=== PATIENT | female | born 1950 | race Caucasian/White ===

== ENCOUNTER 2016-09-22 11:32 | Outpatient (CLI) | payer MEDICARE ==
[2016-09-22 13:10] LABS: ALT (SGPT) 39 U/L (0-55); AST (SGOT) 32 U/L (5-34); Alkaline Phosphatase 53 U/L (40-150); Anion Gap 13 mmol/L (10-20); BUN (Urea Nitrogen) 10 mg/dL (9.8-20.1); Bilirubin, Total 0.9 mg/dL (0.2-1.2); Calc. Creatinine Clearance 0 mL/min (70-130); Calcium 9.3 mg/dL (7.8-10.44); Carbon Dioxide 24 mmol/L (23-31); Chloride 107 mmol/L (98-107); Estimated GFR-MDRD 81; Globulin 2.8 g/dL (2.4-3.5); LDL Cholesterol, Calculated 117 mg/dL; Protein, Total 6.9 g/dL (5.8-8.1)
[2016-09-22 13:34] LABS: #Basophils 0.1 thou/uL (0.0-0.2); #Eosinphils 0.5 thou/uL (0.0-0.7); #Lymphocytes 1.8 thou/uL (1.20-3.40); #Monocytes 0.4 thou/uL (0.11-0.59); #Neutrophils 3.8 thou/uL (1.40-6.50); %Basophils 1.4 % (0.0-1.0); %Eosinophils 7.4 % (0.0-10.0); %Monocytes 6.5 % (0.0-10.0); Hematocrit 43.3 % (36.0-47.0); Mean Platelet Volume 8.2 fL (7.4-10.4); Red Blood Cell (RBC) Count 4.57 mill/uL (4.20-5.40); White Blood Cell (WBC) Count 6.6 thou/uL (4.8-10.8)
== END 2016-09-22 11:33 | disposition home or self-care (01) ==
LOC: HPCALD 11:32
PROVIDERS: ATTEND Family Medicine
DX: E03.9 Hypothyroidism, unspecified (principal); I10 Essential (primary) hypertension
CPT/HCPCS: 36415; 80053; 80061; 84439; 84443; 85025

== ENCOUNTER 2016-11-03 10:00 | Outpatient (CLI) | payer MEDICARE ==
[2016-11-03 11:14] LABS: ALT (SGPT) 30 U/L (0-55); AST (SGOT) 25 U/L (5-34); Alkaline Phosphatase 50 U/L (40-150); Bilirubin, Direct 0.4 mg/dL (0.1-0.3); Bilirubin, Total 0.8 mg/dL (0.2-1.2); LDL Cholesterol, Calculated 60 mg/dL; Protein, Total 6.5 g/dL (5.8-8.1)
== END 2016-11-03 10:01 ==
LOC: HPCALD 10:00
PROVIDERS: ATTEND Family Medicine
DX: E78.00 Pure hypercholesterolemia, unspecified (principal)
CPT/HCPCS: 36415; 80061; 80076

== ENCOUNTER 2017-03-24 16:33 | Outpatient (CLI) | payer MEDICARE | END 2017-03-24 16:34 | disposition home or self-care (01) | LOC: HPCALD 16:33 | PROVIDERS: ATTEND Family Medicine | DX: E03.9 Hypothyroidism, unspecified (principal) | CPT/HCPCS: 36415; 84443 ==

== ENCOUNTER 2017-05-13 08:07 | Outpatient (CLI) | payer MEDICARE ==
[2017-05-13 08:52] LABS: Anion Gap 12 mmol/L (10-20); BUN (Urea Nitrogen) 17 mg/dL (9.8-20.1); Calc. Creatinine Clearance 0 mL/min (70-130); Calcium 9.6 mg/dL (7.8-10.44); Carbon Dioxide 27 mmol/L (23-31); Chloride 107 mmol/L (98-107); Estimated GFR-MDRD 70; Glucose 111 mg/dL (80-115); Potassium 4.8 mmol/L (3.5-5.1); Sodium 141 mmol/L (136-145)
== END 2017-05-13 08:08 | disposition home or self-care (01) ==
LOC: BURLAB 08:07
PROVIDERS: ATTEND Internal Medicine Cardiovascular Disease
DX: R42 Dizziness and giddiness (principal); R93.1 Abnormal findings on diagnostic imaging of heart and coronary circulation; I10 Essential (primary) hypertension
CPT/HCPCS: 36415; 80048

== ENCOUNTER 2018-01-27 08:45 | Outpatient (CLI) | payer MEDICARE ==
[2018-01-27 09:48] LABS: Prothrombin Time 12.6 SEC (12.0-14.7)
[2018-01-27 09:49] LABS: INR-International Normal Ratio 0.9
--- NOTE | 2018-01-27 17:23 | ULT ---
HEPATIC ULTRASOUND 01/27/18 Ultrasonography of the right upper quadrant was performed. The liver is large, measuring 17.6 cm in oblique sagittal length. It is diffusely echogenic, suggesti ng some degree of fatty infiltration. No hepatic masses or dilated ducts were seen. Portal venous fox w was appropriately towards the liver. There has been a prior cholecystectomy. The pancreas was parti ally obscured by gas, but the visible sections appear normal. The right kidney appears normal and was 10.7 cm long. The common bile duct is a normal 4 mm in caliber. IMPRESSION: Mild hepatic enlargement and presumed fatty infiltration. No acute right upper quadrant findings. POS: HOME
[2018-01-27 17:44] LABS: #Basophils 0.1 thou/uL (0.0-0.2); #Eosinphils 0.3 thou/uL (0.0-0.7); #Monocytes 0.5 thou/uL (0.11-0.59); %Basophils 0.9 % (0.0-1.0); %Eosinophils 4.2 % (0.0-10.0); %Lymphocytes 28.9 % (21.0-51.0); %Monocytes 6.9 % (0.0-10.0); Hemoglobin 12.9 g/dL (12.0-16.0); Mean Corpuscular HGB CONC 32.1 g/dL (32.0-36.0); Mean Corpuscular Hemoglobin 30.3 pg (27.0-31.0); Mean Corpuscular Volume 94.4 fl (81.0-99.0); Mean Platelet Volume 9.1 fL (7.4-10.4); Platelet Count 222 thou/uL (130-400); RBC Distribution Width 12.2 % (11.5-14.5); Red Blood Cell (RBC) Count 4.25 mill/uL (4.20-5.40); White Blood Cell (WBC) Count 6.8 thou/uL (4.8-10.8)
[2018-01-27 17:46] LABS: ALT (SGPT) 37 U/L (8-55); AST (SGOT) 33 U/L (5-34); Albumin 4.4 g/dL (3.4-4.8); Alkaline Phosphatase 63 U/L (40-150); Anion Gap 9 mmol/L (10-20); BUN (Urea Nitrogen) 10 mg/dL (9.8-20.1); Bilirubin, Total 0.7 mg/dL (0.2-1.2); Calc. Creatinine Clearance 0 mL/min (70-130); Calcium 9.9 mg/dL (7.8-10.44); Carbon Dioxide 28 mmol/L (23-31); Chloride 107 mmol/L (98-107); Estimated GFR-MDRD 83; Globulin 2.6 g/dL (2.4-3.5); Glucose 113 mg/dL (80-115); Potassium 4.4 mmol/L (3.5-5.1); Sodium 140 mmol/L (136-145)
[2018-01-27 18:05] LABS: Hep B Core Total Ab Non-Reactive (NonReactive); Hep B Core Total Index 0.07 S/CO (0-0.79); Hep B Surf AB Non-Reactive (NonReactive)
[2018-01-29 08:21] LABS: Hepatitis A IgM ABS Negative (Negative); Hepatitis A Total ABS Negative (Negative)
== END 2018-01-27 08:46 | disposition home or self-care (01) ==
LOC: BURULT 08:45
PROVIDERS: ATTEND Internal Medicine Gastroenterology
DX: K52.9 Noninfective gastroenteritis and colitis, unspecified (principal); K75.81 Nonalcoholic steatohepatitis (NASH); R11.10 Vomiting, unspecified; R16.0 Hepatomegaly, not elsewhere classified
CPT/HCPCS: 36415; 76705; 80053; 82105; 85025; 85610; 86704; 86706; 86709; 87045; 87046; 87081; 87177; 87324; 87449; 87899

== ENCOUNTER 2018-06-28 11:12 | Outpatient (CLI) | payer MEDICARE ==
--- NOTE | 2018-06-28 18:38 | RAD ---
RIGHT SHOULDER THREE VIEWS: 06/28/2018 FINDINGS: No fracture, dislocation, or abnormality of the glenohumeral joint is seen. There is no widening of the AC joint, though there may be some minor bony spurring here. Incidentally noted is what is proba chin some slight foraminal narrowing, on the right, at the C5-C6 level of the cervical spine. IMPRESSION: 1. No acute findings in the shoulder. 2. Possible mild foraminal narrowing at C5-C6 on the right. Other studies would be needed for confi rmation. POS: HOME
== END 2018-06-28 11:13 | disposition home or self-care (01) ==
LOC: BURRAD 11:12
PROVIDERS: ATTEND Physician Assistant
DX: M25.511 Pain in right shoulder (principal)

== ENCOUNTER 2018-10-29 10:13 | Emergency (ER) | payer MEDICARE | END 2018-10-29 10:58 | disposition home or self-care (01) | LOC: BURERS 10:13 | DX: T78.3XXA Angioneurotic edema, initial encounter (principal); E78.5 Hyperlipidemia, unspecified; E03.9 Hypothyroidism, unspecified; I10 Essential (primary) hypertension; G43.909 Migraine, unspecified, not intractable, without status migrainosus; Z79.891 Long term (current) use of opiate analgesic; Z79.899 Other long term (current) drug therapy | CPT/HCPCS: 99283 ==

== ENCOUNTER 2019-09-20 08:45 | Outpatient (CLI) | payer MEDICARE ==
--- NOTE | 2019-09-20 16:48 | ULT ---
LEFT ARM VENOUS ULTRASOUND: 09/20/19 Color duplex Doppler ultrasonography of the deep veins of the left upper extremity was obtained. No e chogenic clot was seen. All deep veins were freely compressible from the base of the neck to the wris t. There was normal Doppler response to augmentation maneuvers. IMPRESSION: No evidence of DVT. POS: HOME
== END 2019-09-20 08:46 | disposition home or self-care (01) ==
LOC: BURULT 08:45
PROVIDERS: ATTEND Family Medicine
DX: M79.622 Pain in left upper arm (principal)

== ENCOUNTER 2019-09-29 11:00 | Outpatient (CLI) | payer MEDICARE ==
--- NOTE | 2019-09-29 12:53 | RAD ---
LEFT SHOULDER THREE VIEWS: 09/29/2019 FINDINGS: No fracture, dislocation or AC joint widening is seen. Some mild arthritic changes are seen in the AC joint. The visible adjacent ribs appear intact. The glenohumeral joint is unremarkable for age. IMPRESSION: No acute bony findings. POS: [facility]
== END 2019-09-29 11:01 | disposition home or self-care (01) ==
LOC: BURRAD 11:00
PROVIDERS: ATTEND Family Medicine
DX: M25.512 Pain in left shoulder (principal)

== ENCOUNTER 2022-02-26 15:19 | Emergency (ER) | payer MEDICARE | END 2022-02-26 16:07 | disposition home or self-care (01) | LOC: BURERS 15:19 | DX: J32.9 Chronic sinusitis, unspecified (principal) | CPT/HCPCS: 99283 ==

== ENCOUNTER 2022-04-02 14:49 | Emergency (ER) | payer MEDICARE ==
[2022-04-02] MEDS ORDERED: Acetaminophen 500 MG TAB ONE (15:21)
[2022-04-02] MEDS ORDERED: diphenhydrAMINE 50 MG/ML VIAL ONE (15:21)
[2022-04-02] MEDS ORDERED: Metoclopramide HCl 10 MG/2 ML VIAL ONE (15:21)
[2022-04-02 15:27] LABS: #Basophils 0.1 thou/uL (0.0-0.2); #Eosinphils 0.2 thou/uL (0.0-0.7); #Monocytes 0.5 thou/uL (0.11-0.59); #Neutrophils 5.9 thou/uL (1.40-6.50); %Basophils 0.8 % (0.0-1.0); %Eosinophils 2.4 % (0.0-10.0); %Lymphocytes 22.8 % (21.0-51.0); %Monocytes 5.3 % (0.0-10.0); %Neutrophils 68.7 % (42.0-75.0); Hemoglobin 12.6 g/dL (12.0-16.0); Mean Corpuscular HGB CONC 31.8 g/dL (32.0-36.0); Mean Corpuscular Hemoglobin 28.4 pg (27.0-31.0); Mean Corpuscular Volume 89.2 fL (78.0-98.0); Mean Platelet Volume 9.7 fL (7.4-10.4); Platelet Count 216 thou/uL (130-400); RBC Distribution Width 14.6 % (11.5-14.5); Red Blood Cell (RBC) Count 4.46 mill/uL (4.20-5.40); White Blood Cell (WBC) Count 8.5 thou/uL (4.8-10.8)
[2022-04-02 15:47] LABS: ALT (SGPT) 20 U/L (8-55); AST (SGOT) 25 U/L (5-34); Albumin 4.2 g/dL (3.4-4.8); Alkaline Phosphatase 55 U/L (40-110); Anion Gap 13 mmol/L (10-20); BUN (Urea Nitrogen) 17 mg/dL (9.8-20.1); Bilirubin, Total 0.6 mg/dL (0.2-1.2); Calc. Creatinine Clearance 0 mL/min (70-130); Calcium 9.9 mg/dL (7.8-10.44); Carbon Dioxide 23 mmol/L (23-31); Chloride 109 mmol/L (98-107); Estimated GFR 64; Globulin 3.1 g/dL (2.4-3.5); Glucose 126 mg/dL (83-110); Potassium 3.7 mmol/L (3.5-5.1); Protein, Total 7.3 g/dL (5.8-8.1); Sodium 141 mmol/L (136-145)
[2022-04-02] MEDS ORDERED: Ketorolac Tromethamine 30 MG/ML VIAL ONE (16:26)
[2022-04-02] MEDS ORDERED: Magnesium 2 GM/50 ML BAG (IN WATER) ONE (16:26)
== END 2022-04-02 17:15 | disposition home or self-care (01) ==
LOC: BURERS 14:49
DX: G43.909 Migraine, unspecified, not intractable, without status migrainosus (principal); E11.9 Type 2 diabetes mellitus without complications; E78.5 Hyperlipidemia, unspecified; I10 Essential (primary) hypertension; Z79.899 Other long term (current) drug therapy; Z79.84 Long term (current) use of oral hypoglycemic drugs
CPT/HCPCS: 36415; 70450; 80053; 85025; 85652; 96365; 96366; 96368; 96375; J1200; J1885; J2765; J3475

== ENCOUNTER 2023-04-08 14:49 | Emergency (ER) | payer MEDICARE ==
[2023-04-08 16:14] LABS: Bilirubin Large (Negative); Blood, Urine Trace (Negative); Glucose, Urine (Dipstick) Negative (Negative); Ketone, Urine 15 mg/dL (Negative); Leukocyte Small (Negative); Nitrite Negative (Negative); Protein, Urine (Dipstick) > or equal to 300 mg/dL (Neg-Trace); pH, Urine 5.5 (5.0-9.0)
[2023-04-08 16:21] LABS: Clarity Hazy (Clear); Specific Gravity, Urine 1.032 (1.002-1.036)
[2023-04-08 16:22] LABS: Bacteria/HPF 1+ HPF (None Seen); CAUTI Indications for Culture Pelvic or flank pain; RBC/HPF 0-3 HPF (0-3)
[2023-04-08 16:23] LABS: Urine Culture Reflex Yes Yes
== END 2023-04-08 16:34 | disposition home or self-care (01) ==
LOC: BURERS 14:49
DX: N39.0 Urinary tract infection, site not specified (principal); I10 Essential (primary) hypertension; E11.9 Type 2 diabetes mellitus without complications; E78.5 Hyperlipidemia, unspecified; Z79.84 Long term (current) use of oral hypoglycemic drugs; Z79.899 Other long term (current) drug therapy
CPT/HCPCS: 81001; 87086; 99283